=== PATIENT | female | born 1940 | race Caucasian/White ===

== ENCOUNTER 2019-06-10 06:15 | Day surgery (SDC) | payer OTHER ==
[2019-06-04 12:43] VITALS: BMI 26.0
[2019-06-10] MEDS ORDERED: ERYTHROMYCIN 0.5% OPHTHALMIC OINTMENT 3.5 GM TUBE ONE (06:43)
[2019-06-10] MEDS ORDERED: BUPIVACAINE HCL/PF 0.5% (5MG/ML) 10 ML VIAL ONE (06:43)
[2019-06-10] MEDS ORDERED: POVIDONE-IODINE 5% OPHTHALMIC PREP 30 ML SOLUTION ONE (06:43)
[2019-06-10] MEDS ORDERED: TETRACAINE 0.5% OPHTH SOLN 2 ML BOTTLE ONE (06:43)
[2019-06-10] MEDS ORDERED: LIDOCAINE 1%/EPI 1:100000 (20 ML MULTI DOSE VIAL) ONE (06:44)
[2019-06-10] MEDS ORDERED: MIDAZOLAM HCL 2 MG/2 ML SINGLE DOSE VIAL ONE (06:52)
[2019-06-10] MEDS ORDERED: DEXAMETHASONE SOD PHOSPHATE 4 MG/1 ML VIAL ONE (06:52)
[2019-06-10] MEDS ORDERED: ONDANSETRON 4 MG/2 ML VIAL ONE (06:52)
[2019-06-10] MEDS ORDERED: ceFAZolin SODIUM 1 GM VIAL ONE (06:52)
[2019-06-10] MEDS ORDERED: PROPOFOL 20 ML ONE ×2 (06:52→07:23)
[2019-06-10] MEDS ORDERED: LACTATED RINGERS SOLUTION 1,000 ML IV SCH (08:15)
[2019-06-10] MEDS ORDERED: ONDANSETRON 4 MG/2 ML VIAL IVPUSH PRN (08:15)
[2019-06-10] MEDS ORDERED: oxyCODONE HCL 5 MG TABLET PO PRN ×2 (08:15)
--- NOTE | 2019-06-10 09:23 | OP ---
DATE OF OPERATION: 06/10/2019 PREOPERATIVE DIAGNOSIS: Squamous cell carcinoma, right lower lid, status post Mohs. POSTOPERATIVE DIAGNOSIS: Squamous cell carcinoma, right lower lid, status post Mohs. PROCEDURES PERFORMED: 1. Debridement and tailoring of defect, right lower lid. 2. Skin muscle advancement flap from the right lateral canthus and right lower lid to the right medial canthus, with reconstruction of the right lower lid. SURGEON: Ayde Olivera MD ANESTHESIA: Local with sedation. COMPLICATIONS: None. ESTIMATED BLOOD LOSS: 3 mL. DESCRIPTION OF PROCEDURE: The patient was brought to the operating room and placed on the operating room table. Vital signs were monitored by Anesthesia. Tetracaine was placed in both eyes. A time-out was performed, following which a 50/50 mixture of 2% Xylocaine with 1:100,000 epinephrine and 0.5% Marcaine was injected diffusely throughout the right lower lid, right cheek and right lateral canthus for a total of 4 to 5 mL. Afterwards, a subciliary line extending to the defect in the nasal portion of the eyelid and medial canthus was marked. Massage was applied for hemostasis. The patient was prepped and draped in the usual sterile fashion, exposing both eyes, and skin and skin muscle flap were then developed across the right lower lid extending out superiorly into the lateral canthus. Undermining was carried out until all tension was released on the flap. Hemostasis was achieved with a Burke needle. Antibiotic irrigation was used throughout the case. The flap was advanced under minimal to no tension into the right medial canthal junction of the nose and right lower eyelid. It was secured at the apex and along its medial edge and along its superior edge with subcuticular 6-0 Vicryl sutures under minimal tension. A double-armed 5-0 Prolene was passed through the lateral orbital rim and then laterally through the advancement flap and tied to bolster to advance the entire flap nasally and take tension off of the flap. The skin was closed with a combination of running and interrupted 6-0 plain suture with plastic technique along the subciliary incision and along the medial junction of the flap with the lateral nasal wall. Erythromycin ointment was placed on the sutures and on the bolster, and the patient was taken to the recovery room in stable condition. AYDE OLIVERA M.D. [id number]
[2019-06-10 09:29] VITALS: PULSE 69
[2019-06-10 09:40] VITALS: BP 134/70; TEMP 98
== END 2019-06-10 09:40 | disposition home or self-care (01) ==
LOC: FASU 06:15
PROVIDERS: ATTEND Ophthalmology
PROC: 08BQ0ZZ Excision of Right Lower Eyelid, Open Approach (ICD-10-PCS; principal; 2019-06-10 07:25)
DX: H02.89 Other specified disorders of eyelid (principal); C44.1222 Squamous cell carcinoma of skin of right lower eyelid, including canthus; Z48.817 Encounter for surgical aftercare following surgery on the skin and subcutaneous tissue
CPT/HCPCS: 94760